=== PATIENT | male | born 1945 | race Caucasian/White ===

== ENCOUNTER 2018-06-20 18:54 | Emergency (ER) | payer OTHER ==
[~2018-06-20] VITALS: Ht 188 cm; Wt 108.9 kg
[2018-06-20 18:59] VITALS: Ht 188 cm; Wt 108.9 kg
[2018-06-20 19:44] LABS: BASOPHIL % 0.7 % (0-2); PLATELET COUNT 196 x10^3mcL (130-400)
[2018-06-20 19:48] LABS: RED CELL DISTRIBUTION WIDTH 20.5 % (11.5-14.5)
[2018-06-20 19:54] LABS: CALCIUM 7.5 mg/dL (8.5-10.1); CARBON DIOXIDE 23.5 mmol/L (21-32); CHLORIDE SERUM 98 mmol/L (98-107); CREATININE SERUM 1.6 mg/dL (0.7-1.3); GLUCOSE SERUM 91 mg/dL (74-106); POTASSIUM SERUM 3.8 mmol/L (3.5-5.1); SODIUM SERUM 131 mmol/L (136-145)
[2018-06-20 19:57] LABS: ovalocyte/elliptocyte 1+; rbc morphology (normal/abnorm) ABNORMAL (NORMAL); tear drop cell (dacryocyte) 1+
[2018-06-20 19:59] LABS: ALBUMIN 3.3 g/dL (3.4-5.0); ALKALINE PHOSPHATASE 64 U/L (46-116); ALT/SGPT 46 U/L (16-63); AST/SGOT 42 U/L (15-37); BILIRUBIN TOTAL 0.49 mg/dL (0.20-1.00); CHOLESTEROL 133 mg/dL (<200); HDL CHOLESTEROL 59 mg/dL (40-60); TOTAL PROTEIN, SERUM 6.5 g/dL (6.4-8.2)
[2018-06-20 23:00] VITALS: BP 149/72
== END 2018-06-20 23:00 | disposition home or self-care (01) ==
LOC: ED 18:54
PROVIDERS: Emergency Medicine
DX: S01.511A Laceration without foreign body of lip, initial encounter (principal); S56.392A Other injury of extensor or abductor muscles, fascia and tendons of left thumb at forearm level, initial encounter; S46.891A Other injury of other muscles, fascia and tendons at shoulder and upper arm level, right arm, initial encounter; S09.93XA Unspecified injury of face, initial encounter; F10.129 Alcohol abuse with intoxication, unspecified; I48.91 Unspecified atrial fibrillation; I10 Essential (primary) hypertension; W22.8XXA Striking against or struck by other objects, initial encounter; Y93.89 Activity, other specified; Y92.89 Other specified places as the place of occurrence of the external cause; Y99.8 Other external cause status
CPT/HCPCS: 90715; G0480; J0295; J2001; Q0092

== ENCOUNTER 2018-06-28 08:29 | Emergency (ER) | payer OTHER ==
[~2018-06-28] VITALS: Ht 188 cm; Wt 109.3 kg
[2018-06-28 08:33] VITALS: BP 113/78; Ht 188 cm; Wt 109.3 kg
== END 2018-06-28 10:07 | disposition home or self-care (01) ==
LOC: ED 08:29
DX: S01.511D Laceration without foreign body of lip, subsequent encounter (principal); I10 Essential (primary) hypertension